=== PATIENT | male | born 1990 | race Two or more races ===

== ENCOUNTER 2022-07-16 00:45 | Emergency (ER) | payer BC ==
--- NOTE | 2022-07-16 01:41 | NUR ---
PT WENT TO RESTROOM TO PROVIDE URINE SAMPLE AND NOTICED HE PASSED KINDEY STONE. STONE NOTED IN URINE COLLECTION CUP. PT REPORTS IMPROVEMENT IN PAIN AND STATES HE NO LONGER WISHES TO BE SEEN. MADE AWARE.
== END 2022-07-16 01:43 | disposition home or self-care (01) ==
LOC: ER 00:53
DX: Z53.21 Procedure and treatment not carried out due to patient leaving prior to being seen by health care provider (principal)